=== PATIENT | female | born 1965 | race Caucasian/White ===

== ENCOUNTER 2016-11-09 10:47 | Inpatient (IN) | payer SELFPAY ==
[2016-11-09 12:38] LABS: HEMATOCRIT 42.9 % (36.0-47.0); HEMOGLOBIN 13.5 g/dL (12.0-15.5); HGB HCT DIFFERENCE -2.4; MEAN CORPUSCULAR HEMOGLOBIN 26.8 pg (27.0-33.4); MEAN CORPUSCULAR HGB CONC 31.4 g/dL (32.0-36.0); MEAN CORPUSCULAR VOLUME 85 fl (80-97); RED BLOOD COUNT 5.03 10^6/uL (3.72-5.28); RED CELL DISTRIBUTION WIDTH 12.7 % (11.5-14.0)
[2016-11-09] MEDS: NORMAL SALINE 1000 ML 1,000 ML IV PRN (12:39)
[2016-11-09 12:53] LABS: ANION GAP 14 (5-19); BLOOD UREA NITROGEN 11 mg/dL (7-20); CALCIUM 8.5 mg/dL (8.4-10.2); CARBON DIOXIDE 28 mmol/L (22-30); CHLORIDE 94 mmol/L (98-107); CREATININE RESULT 0.84 mg/dL (0.52-1.25); GLUCOSE 107 mg/dL (75-110); SODIUM 135.7 mmol/L (137-145)
[2016-11-09 12:56] LABS: BAND NEUTROPHILS % (MANUAL) 6 % (3-5); BASOPHILS % (MANUAL) 0 % (0-2); EOSINOPHILS % (MANUAL) 0 % (0-6); LYMPHOCYTES % (MANUAL) 2 % (13-45); TOTAL CELLS COUNTED 100
[2016-11-09 12:58] LABS: POTASSIUM 2.8 mmol/L (3.6-5.0)
[2016-11-09 13:00] LABS: PLATELET CLUMPS PRESENT; POIKILOCYTOSIS SLIGHT; POLYCHROMASIA SLIGHT
[2016-11-09 13:01] LABS: TOXIC GRANULATION SLIGHT
[2016-11-09 13:07] LABS: TEAR DROP CELLS SLIGHT
[2016-11-09 13:21] LABS: WHITE BLOOD COUNT 37.4 10^3/uL (4.0-10.5)
[2016-11-09 13:27] LABS: TOXIC VACUOLATION PRESENT
[2016-11-09] MEDS ORDERED: VANCOMYCIN HCL INJ 1000 MG VIAL IV ONE (13:45)
--- NOTE | 2016-11-09 13:59 | PDOC H&P ---
History of Present Illness Admission Date/PCP: 11/09/16 10:47 NUBIA MCGOWAN MD Patient complains of: Left buttocks pain History of Present Illness: ROSAMARIA LOCKE is a 51 year old female who has been having some generalized malaise along with fevers for the past week and a half. She has noticed a left buttocks small region of irritation erythema that has dramatically increased in size with dramatic increase in pain. She has been treated with Keflex as an outpatient without resolution of the current process. She has had worsening of her symptoms and she subsequently was admitted via the office today. Patient denies any drainage. Denies any active abdominal pain. She has some myalgias. No history of MRSA Past Medical History Cardiac Medical History: Denies: Coronary Artery Disease, Myocardial Infarction, Hypertension Pulmonary Medical History: Denies: Asthma, Bronchitis, Chronic Obstructive Pulmonary Disease (COPD), Pneumonia Neurological Medical History: Denies: Seizures Musculoskeltal Medical History: Denies: Arthritis Hematology: Denies: Anemia Infectious Medical History: Reports: None Past Surgical History Past Surgical History: Reports: Hysterectomy, Thyroidectomy, Tonsillectomy Denies: Pacemaker Social History Smoking Status: Never Smoker Hx Recreational Drug Use: No Family History Parental Family History Reviewed: No Children Family History Reviewed: No Sibling(s) Family History Reviewed.: No Medication/Allergy Home Medications: Levothyroxine Sodium [Synthroid 0.112 mg Tablet] 112 mcg PO DAILY 11/09/16 Allergies/Adverse Reactions: Influenza A (H1N1)Vaccine 2008 * [Influenza A (H1N1)Vaccine 2008] Allergy ( Unknown, Verified 12/05/10 14:51) Flu vaccine Allergy (Severe, Uncoded 12/01/10 09:21) Whole arm swelled up; pain Physical Exam Vital Signs: Temp Pulse Resp BP Pulse Ox 98.6 F 98 20 127/62 H 98 11/09/16 13:10 11/09/16 13:10 11/09/16 13:10 11/09/16 13:10 11/09/16 13:10 Intake & Output 11/08/16 11/09/16 11/10/16 06:59 06:59 06:59 Weight 119.748 kg General appearance: PRESENT: no acute distress, cooperative Eye exam: PRESENT: conjunctiva pink Respiratory exam: PRESENT: clear to auscultation uriel Cardiovascular exam: PRESENT: tachycardia GI/Abdominal exam: PRESENT: other - Soft, nondistended, nontender to palpation. Rectal exam: PRESENT: other - Left buttocks with a diffuse deep red erythema with induration but no focal fluctuance. Marked tenderness to palpation. Neurological exam: PRESENT: alert, awake Psychiatric exam: PRESENT: appropriate affect Results Laboratory Results: 11/09/16 12:17 11/09/16 12:17 11/09/16 11/09/16 12: 12:17 WBC 37.4 H* RBC 5.03 Hgb 13.5 Hct 42.9 MCV 85 MCH 26.8 L MCHC 31.4 L RDW 12.7 Plt Count 389 Seg Neutrophils % Not Reportable Lymphocytes % Not Reportable Monocytes % Not Reportable Eosinophils % Not Reportable Basophils % Not Reportable Absolute Neutrophils Not Reportable Absolute Lymphocytes Not Reportable Absolute Monocytes Not Reportable Absolute Eosinophils Not Reportable Absolute Basophils Not Reportable Sodium 135.7 L Potassium 2.8 L* Chloride 94 L Carbon Dioxide 28 Anion Gap 14 BUN 11 Creatinine 0.84 Est GFR ( Amer) > 60 Est GFR (Non-Af Amer) > 60 Glucose 107 Calcium 8.5 Assessment & Plan - Diagnosis (1) Cellulitis of buttock, left Is this a current diagnosis for this admission?: YesPlan: Patient has signs or symptoms of severe MRSA infection. Await CT scan to rule out any abscess pocket. However will have a low threshold for surgical exploration in light of the severe leukocytosis. Will start vancomycin.
--- NOTE | 2016-11-09 15:40 | RADIOLOGY REPORT (SQ) ---
EXAM DESCRIPTION: CT ABD/PELVIS WITH IV ORAL COMPLETED DATE/TIME: 11/09/2016 3:21 pm REASON FOR STUDY: cellulitis COMPARISON: None. TECHNIQUE: CT scan of the abdomen and pelvis performed using helical scanning technique with dynamic intravenous contrast injection. Patient drank oral contrast. Images reviewed with lung, soft tissue, and bone windows. Reconstructed coronal and sagittal MPR images reviewed. Delayed images for evaluation of the urinary system also acquired. All images stored on PACS. All CT scanners at this facility use dose modulation, iterative reconstruction, and/or weight based d osing when appropriate to reduce radiation dose to as low as reasonably achievable (ALARA). [facility]: Dose Right [facility]: CareDose [facility]: Dose Right [facility]: Teradose 4D [facility]: Hiptype CONTRAST TYPE AND DOSE: contrast/concentration: Isovue 370.00 mg/ml; Total Contrast Delivered: 88.8 ml; Total Saline Delivered: 72.0 ml RENAL FUNCTION: Creatinine 0.89 RADIATION DOSE: Up-to-date CT equipment and radiation dose reduction techniques were employed. CTDIv ol: 23.2 - 25.1 mGy. DLP: 2851 mGy-cm.. LIMITATIONS: None. FINDINGS: A left-sided perirectal abscess is present, measuring at least 8 cm craniocaudad x 7 cm AP x 4.5 cm transverse. This extends from the subcutaneous fat along the medial left buttock up into t he left ischiorectal fossa fat. Abscess tracks medially into the immediate perirectal fat on axial i mages 103-107. Findings discussed with Dr. Paris, 1515 hours 11/19/2016. This abscess is best shown on axial images 92-107, sagittal image 55, and coronal images 69-92. LOWER CHEST: Bandlike atelectasis right lung base. Small hiatal hernia. LIVER: Normal size. No masses. No dilated ducts. Diffuse low attenuation from fatty infiltration of the liver SPLEEN: Normal size. No focal lesions. PANCREAS: No masses. No significant calcifications. No adjacent inflammation or peripancreatic fluid collections. Pancreatic duct not dilated. GALLBLADDER: Surgically absent ADRENAL GLANDS: No significant masses or asymmetry. RIGHT KIDNEY AND URETER: No solid masses. No significant calcifications. No hydronephrosis or hyd roureter. LEFT KIDNEY AND URETER: No solid masses. No significant calcifications. No hydronephrosis or hydr oureter. AORTA AND VESSELS: No aneurysm. No dissection. Renal arteries, SMA, celiac without stenosis. RETROPERITONEUM: No retroperitoneal adenopathy, hemorrhage or masses. BOWEL AND PERITONEAL CAVITY: No masses or inflammatory changes. No free fluid or peritoneal masses. APPENDIX: Normal. PELVIS: Deep left perirectal abscess. Post hysterectomy. Ovaries not identified. Urinary bladder u nremarkable. 2 x 1 cm left inguinal lymph node ABDOMINAL WALL: No masses. No hernias. BONES: No significant or acute findings. OTHER: No other significant finding. IMPRESSION: 8 x 7 x 4.5 cm left perirectal abscess. TECHNICAL DOCUMENTATION: JOB ID: [id number] Quality ID # [id number]: Final reports with documentation of one or more dose reduction techniques (e.g., Au tomated exposure control, adjustment of the mA and/or kV according to patient size, use of iterative reconstruction technique) 2010 [employer]- All Rights Reserved
[2016-11-09] MEDS: POTASSIUM CHLORIDE 20 MEQ/50 ML RTU IV SCH ×2 (15:54→19:56)
[2016-11-09] MEDS: MORPHINE SULFATE 10 MG/ML INJ IV PRN (16:15)
[2016-11-09] MEDS: VANCOMYCIN HCL 1,500 MG in DEXTROSE 5%-WATER 250 ML IV SCH (16:16)
--- NOTE | 2016-11-09 16:52 | PDOC PROGRESS REPORT ---
Physical Exam Vital Signs: Temp Pulse Resp BP Pulse Ox 103.0 F H 104 H 18 144/65 H 95 11/09/16 16:41 11/09/16 16:41 11/09/16 16:41 11/09/16 16:41 11/09/16 16:41 Intake & Output 11/08/16 11/09/16 11/10/16 06:59 06:59 06:59 Weight 119.748 kg Results Laboratory Results: 11/09/16 12:17 11/09/16 12:17 11/09/16 11/09/16 12:17 12:17 WBC 37.4 H* RBC 5.03 Hgb 13.5 Hct 42.9 MCV 85 MCH 26.8 L MCHC 31.4 L RDW 12.7 Plt Count 389 Seg Neutrophils % Not Reportable Lymphocytes % Not Reportable Monocytes % Not Reportable Eosinophils % Not Reportable Basophils % Not Reportable Absolute Neutrophils Not Reportable Absolute Lymphocytes Not Reportable Absolute Monocytes Not Reportable Absolute Eosinophils Not Reportable Absolute Basophils Not Reportable Sodium 135.7 L Potassium 2.8 L* Chloride 94 L Carbon Dioxide 28 Anion Gap 14 BUN 11 Creatinine 0.84 Est GFR ( Amer) > 60 Est GFR (Non-Af Amer) > 60 Glucose 107 Calcium 8.5 Impressions: Abdomen/Pelvis CT 11/09/16 11:51 IMPRESSION: 8 x 7 x 4.5 cm left perirectal abscess. Assessment & Plan - Diagnosis (1) Perirectal abscess Is this a current diagnosis for this admission?: YesPlan: CT scan demonstrates a perirectal abscess. We will plan to perform a incision and drainage. I have explained to the patient the risk and benefits of the procedure including risk of infection, bleeding, adjacent structure injury, anal fistula formation.
[2016-11-09] MEDS: ACETAMINOPHEN 325 MG TABLET PO PRN ×2 (17:14→22:21)
[2016-11-09] MEDS ORDERED: MIDAZOLAM 2 MG/2 ML INJ ONE (17:53)
[2016-11-09] MEDS ORDERED: BUPIVACAINE HCL 0.25 % INJ/PF (2.5 MG/1 ML) 30 ML VIAL ONE (17:53)
[2016-11-09] MEDS ORDERED: PROPOFOL INJ 200 MG/20 ML VIAL IV ONE (17:53)
[2016-11-09] MEDS ORDERED: MORPHINE SULFATE 10 MG/ML INJ IV PRN ×2 (18:25→18:59)
[2016-11-09] MEDS ORDERED: FENTANYL CITRATE INJ/PF 100 MCG/2 ML AMPUL IV PRN ×3 (18:25)
[2016-11-09] MEDS ORDERED: DIPHENHYDRAMINE HCL 50 MG/ML VIAL IV PRN (18:25)
[2016-11-09] MEDS ORDERED: MEPERIDINE HCL/PF INJ 25 MG/1 ML DISP.SYRIN IV PRN (18:25)
[2016-11-09] MEDS ORDERED: OXYCODONE-ACETAMINOPHEN 5-325 MG TABLET PO PRN ×2 (18:25)
[2016-11-09] MEDS ORDERED: PROMETHAZINE HCL INJ 25 MG/1 ML VIAL IV PRN ×2 (18:25)
[2016-11-09] MEDS ORDERED: ONDANSETRON HCL INJ/PF 4 MG/2 ML SDV IV PRN (18:59)
--- NOTE | 2016-11-09 18:59 | Operative Report ---
Operative Report DATE OF SURGERY: 11/09/16 PREOPERATIVE DIAGNOSIS: Perirectal abscess POSTOPERATIVE DIAGNOSIS: Perirectal abscess OPERATION: Perirectal abscess incision and drainage SURGEON: NATASHA BARRIENTOS ANESTHESIA: Spinal TISSUE REMOVED OR ALTERED: Pus sent for Gram stain and culture COMPLICATIONS: None ESTIMATED BLOOD LOSS: 20 cc INTRAOPERATIVE FINDINGS: About the 4 x 10 cm abscess cavity extending from the left perianal region cephalad with copious amounts of pus PROCEDURE: Informed consent was obtained. Patient was brought to the operating room. After spinal anesthesia patient was placed in the prone jackknife position at the left perianal region a 18-gauge needle was placed aspirating copious amounts of foul-smelling pus. An incision was made overlying this region entering a large abscess cavity with drainage of copious amounts of pus. An ellipse of skin was taken away laterally from the initial incision to allow better drainage. Hemostasis was achieved with electrocautery. The abscess cavity measured about 4 cm x 10 cm. It extended cephalad but did not feel to cross the midline. The abscess cavity was irrigated and irrigant aspirated out. A large Malecot drain was placed into the abscess cavity and it was sutured in placed with a chromic suture. Marcaine was injected. Patient tolerated procedure well with no apparent complications and was taken to the recovery area in stable condition.
[2016-11-09] MEDS: LEVOFLOXACIN 500 MG/D5W RTU 500 MG/100 ML RTUPB IV SCH (19:57)
[2016-11-09] MEDS: METRONIDAZOLE 500 MG/NS RTU 100 ML IV SCH (21:44)
[2016-11-10] MEDS: METRONIDAZOLE 500 MG/NS RTU 100 ML IV SCH ×4 (02:16→20:53)
[2016-11-10] MEDS: ACETAMINOPHEN 325 MG TABLET PO PRN (02:36)
[2016-11-10] MEDS ORDERED: VANCOMYCIN HCL INJ 1000 MG VIAL ONE (03:50)
[2016-11-10] MEDS ORDERED: VANCOMYCIN HCL INJ 500 MG VIAL ONE (03:50)
[2016-11-10] MEDS: VANCOMYCIN HCL 1,500 MG in DEXTROSE 5%-WATER 250 ML IV SCH ×2 (04:07→14:01)
[2016-11-10] MEDS: MORPHINE SULFATE 10 MG/ML INJ IV PRN (04:22)
[2016-11-10 07:01] LABS: HEMATOCRIT 36.2 % (36.0-47.0); HEMOGLOBIN 11.9 g/dL (12.0-15.5); HGB HCT DIFFERENCE -0.5; MEAN CORPUSCULAR HEMOGLOBIN 27.5 pg (27.0-33.4); MEAN CORPUSCULAR HGB CONC 32.9 g/dL (32.0-36.0); MEAN CORPUSCULAR VOLUME 84 fl (80-97); RED BLOOD COUNT 4.32 10^6/uL (3.72-5.28); RED CELL DISTRIBUTION WIDTH 12.9 % (11.5-14.0); WHITE BLOOD COUNT 28.5 10^3/uL (4.0-10.5)
[2016-11-10 07:10] LABS: ANION GAP 13 (5-19); BLOOD UREA NITROGEN 11 mg/dL (7-20); CALCIUM 7.5 mg/dL (8.4-10.2); CARBON DIOXIDE 25 mmol/L (22-30); CHLORIDE 99 mmol/L (98-107); CREATININE RESULT 0.67 mg/dL (0.52-1.25); GLUCOSE 82 mg/dL (75-110); SODIUM 136.5 mmol/L (137-145)
[2016-11-10 07:16] LABS: POTASSIUM 2.8 mmol/L (3.6-5.0)
[2016-11-10 07:46] LABS: BAND NEUTROPHILS % (MANUAL) 6 % (3-5); BASOPHILS % (MANUAL) 0 % (0-2); EOSINOPHILS % (MANUAL) 0 % (0-6); HYPOCHROMASIA 1+; LYMPHOCYTES % (MANUAL) 1 % (13-45); POLYCHROMASIA SLIGHT; TOTAL CELLS COUNTED 100; TOXIC GRANULATION 1+; TOXIC VACUOLATION PRESENT
[2016-11-10] MEDS: NORMAL SALINE 1000 ML 1,000 ML IV PRN ×2 (08:16→23:56)
[2016-11-10] MEDS ORDERED: POTASSIUM CHLORIDE 10 MEQ TABLET.SA PO ONE ×2 (08:30→12:30)
[2016-11-10] MEDS ORDERED: LEVOTHYROXINE SODIUM 0.112 MG TABLET PO SCH (10:00)
[2016-11-10] MEDS ORDERED: HYDROCODONE/ACETAMINOPHEN 5-325 MG TABLET PO PRN (10:12)
[2016-11-10] MEDS: HYDROCODONE/ACETAMINOPHEN 5-325 MG TABLET PO PRN ×2 (10:17→22:02)
[2016-11-10 10:37] LABS: PATH REVIEW PATHOLOGIST REVIEWED
[2016-11-10] MEDS: LEVOFLOXACIN 500 MG/D5W RTU 500 MG/100 ML RTUPB IV SCH (17:52)
--- NOTE | 2016-11-10 22:29 | PROGRESS NOTE E ---
Progress Note NAME: ROSAMARIA LOCKE : 1965 AGE: 51Y DATE: 11/10/2016 ROOM: 217 SUBJECTIVE: The patient is postoperative day 1 from incision and drainage of perirectal abscess. The patient is still having discomfort around the surgical site but it is diminishing. OBJECTIVE: VITAL SIGNS: Temperature 97.8, pulse 67, blood pressure 115/75. ABDOMEN: The patient still has some induration in the left buttock region where she had the incision and drainage of the perirectal abscess. The Andrews drain is in place with minimal drainage. DIAGNOSTIC DATA: White blood cell count is 28.5, down from 37.4. Cultures of perirectal abscess is pending. ASSESSMENT: STATUS POST INCISION AND DRAINAGE OF PERIRECTAL ABSCESS WITH PATIENT IMPROVING SOME BUT STILL NEEDS A LONG WAYS TO GO BEFORE BEING DISCHARGED. She will need to continue on IV antibiotics at least until her white blood cell count is near normal and possible discharge on oral, depending on her cultures. PLAN: 1. Continue IV antibiotics. 2. Follow up culture results. 3. Start diet. DICTATING PHYSICIAN: CARRIE SAGE M.D. [id number] PHY#: [id number] ID: [id number] JOB#: [id number] ACCT: [id number] cc: >
[2016-11-11] MEDS: METRONIDAZOLE 500 MG/NS RTU 100 ML IV SCH ×4 (02:24→20:51)
[2016-11-11] MEDS: VANCOMYCIN HCL 1,500 MG in DEXTROSE 5%-WATER 250 ML IV SCH ×2 (03:30→15:25)
[2016-11-11 05:24] LABS: HEMOGLOBIN 11.9 g/dL (12.0-15.5); HGB HCT DIFFERENCE -1.3; MEAN CORPUSCULAR HEMOGLOBIN 27.7 pg (27.0-33.4); MEAN CORPUSCULAR VOLUME 86 fl (80-97); RED BLOOD COUNT 4.28 10^6/uL (3.72-5.28); RED CELL DISTRIBUTION WIDTH 13.2 % (11.5-14.0); WHITE BLOOD COUNT 13.2 10^3/uL (4.0-10.5)
[2016-11-11] MEDS: LEVOTHYROXINE SODIUM 0.112 MG TABLET PO SCH (07:37)
[2016-11-11] MEDS: HYDROCODONE/ACETAMINOPHEN 5-325 MG TABLET PO PRN (12:39)
[2016-11-11 15:07] LABS: CREATININE RESULT 0.74 mg/dL (0.52-1.25)
[2016-11-11] MEDS: LEVOFLOXACIN 500 MG/D5W RTU 500 MG/100 ML RTUPB IV SCH (17:35)
[2016-11-12] MEDS: METRONIDAZOLE 500 MG/NS RTU 100 ML IV SCH ×3 (02:03→14:13)
[2016-11-12] MEDS: VANCOMYCIN HCL 1,500 MG in DEXTROSE 5%-WATER 250 ML IV SCH ×2 (03:15→15:23)
[2016-11-12] MEDS: HYDROCODONE/ACETAMINOPHEN 5-325 MG TABLET PO PRN (03:29)
[2016-11-12] MEDS: LEVOTHYROXINE SODIUM 0.112 MG TABLET PO SCH (07:01)
[2016-11-12] MEDS: NORMAL SALINE 1000 ML 1,000 ML IV PRN (08:26)
[2016-11-12 15:13] VITALS: BP 130/78
[2016-11-12] MEDS ORDERED: AMOXICILLIN TR/POT CLAVULANATE 500-125 MG TAB PO SCH (22:00)
--- NOTE | 2016-11-12 23:39 | PROGRESS NOTE E ---
Progress Note NAME: ROSAMARIA LOCKE : 1965 AGE: 51Y DATE: 11/12/2016 ROOM: 217 SUBJECTIVE: The patient is postoperative day 2 from incision and drainage of a large perirectal abscess with drain placement. She is slowly improving with decreasing pain in the perianal region. The patient states that she has minimal drainage from the wound. Her pain is lessening in the area of the surgery. OBJECTIVE: The patient's redness and induration has improved, but is still present. VITAL SIGNS: Temperature 97.7, pulse 66, blood pressure 129/86. DIAGNOSTIC DATA: White blood cell count of 13. ASSESSMENT: STATUS POST INCISION AND DRAINAGE OF LARGE PERIRECTAL ABSCESS, POSTOPERATIVE DAY 2 WITH THE PATIENT CONTINUING TO IMPROVE AND HAVING IMPROVEMENT IN THE INFECTION. PLAN: 1. Continue local wound care. 2. Continue IV antibiotics. 3. Possible discharge in the a.m. if she continues to improve and going home on oral antibiotics. DICTATING PHYSICIAN: CARRIE SAGE M.D. [id number] PHY#: [id number] ID: [id number] JOB#: [id number] ACCT: [id number] cc: >
--- NOTE | 2016-12-18 09:07 | DISCHARGE SUMMARY E ---
Discharge Summary NAME: ROSAMARIA LOCKE : 1965 AGE: 51Y ADMITTED: 11/09/2016 DISCHARGED: 11/12/2016 REASON FOR ADMISSION: Left buttock pain. HISTORY OF PRESENT ILLNESS: Patient is a 51-year-old female who presents with a week and half history of pain in the left buttock region. She had went to the emergency room. A CT scan of the pelvis was obtained. This showed a large ischial rectal abscess. PRINCIPAL DIAGNOSIS: Ischial rectal abscess. OTHER MEDICAL PROBLEMS: None. PROCEDURE: The patient underwent incision and drainage of a large left ischial rectal abscess on 11/09/2016. HOSPITAL COURSE: The patient was admitted to the hospital and started on IV antibiotics. Her white blood cell count was 37,000. She underwent the above procedure with the drain being left in place. She was then continued on IV antibiotics postoperatively. Her abscess drained out multiple different types of bacteria, all sensitive to the IV antibiotics she was on. Her white blood cell count was watched with her white blood cell count decreasing down to 13,000 at discharge 3 days later. The erythema and induration had improved considerably over the several days she was in the hospital, having minimal erythema at discharge. The drain had been left in placed and she was taught how to care for the drain in going home. She was then discharged home on postoperative day 3 in stable condition. DISCHARGE PLAN: The patient will be discharged home. Follow up in Surgical Clinic in 1 week. Regular diet. Ambulate with no heavy lifting. Augmentin 500 one tab p.o. t.i.d. [place] 5/325 one to two p.o. q.4-6 hours p.r.n. pain. DICTATING PHYSICIAN: CARRIE SAGE M.D. [id number] PHY#: [id number] ID: [id number] JOB#: [id number] ACCT: [id number] cc:CARRIE SAGE M.D., CHRISTOPHER M.D. >
== END 2016-11-12 15:40 | disposition home or self-care (01) | DRG 346 ==
LOC: UNDOADMIN 10:47 → 2S 10:47 → EH 10:47
PROVIDERS: ATTEND Surgery
PROC: 0D9P0ZZ Drainage of Rectum, Open Approach (ICD-10-PCS; principal; 2016-11-09 18:30)
DX: K61.1 Rectal abscess (principal); E89.0 Postprocedural hypothyroidism; Z79.899 Other long term (current) drug therapy; Z88.7 Allergy status to serum and vaccine; Z90.710 Acquired absence of both cervix and uterus
CPT/HCPCS: 36415; 74177; 80048; 80202; 82565; 85025; 85027; 87040; 87070; 87075; 87077; 87186; 87205; 902; C1729; J1956; J2250; J2270; J2405; J2704; J3370; J3480; J3490; J7030; J7060

== ENCOUNTER 2018-02-18 11:32 | Emergency (ER) | payer SELFPAY ==
--- NOTE | 2018-02-18 12:08 | ER Document Report ---
ED General - General Chief Complaint: Leg Pain Stated Complaint: LEFT LEG PAIN Time Seen by Provider: 02/18/18 12:00 Mode of Arrival: Ambulatory Information source: Patient Notes: 52-year-old female presents emergency department with complaints of left calf pain. Patient states that it started 2 days ago. She states that she was walking when she felt a pop in the left calf. Patient states that she is been having pain in the left calf ever since. She is not taking any medication for her symptoms. She states that the pain is worse with plantar flexion and dorsiflexion. Patient is able to ambulate despite the pain. She denies any numbness, tingling, weakness. Patient also denies any recent travel, recent surgery, history of DVT or PE, hormone use, history of malignancy. I have greeted and performed a rapid initial assessment of this patient. A comprehensive ED assessment and evaluation of the patient, analysis of test results and completion of the medical decision making process will be conducted by additional ED providers. PHYSICAL EXAMINATION: GENERAL: Well-appearing, well-nourished and in no acute distress. HEAD: Atraumatic, normocephalic. EYES: Pupils equal round extraocular movements intact, conjunctiva are normal. ENT: Nares patent NECK: Normal range of motion LUNGS: No respiratory distress Musculoskeletal: Normal range of motion. Left calf tenderness to palpation. NEUROLOGICAL: Normal speech, normal gait. PSYCH: Normal mood, normal affect. SKIN: Warm, Dry, normal turgor, no rashes or lesions noted. TRAVEL OUTSIDE OF THE [place] IN LAST 30 DAYS: No - Related Data Allergies/Adverse Reactions: Influenza A (H1N1)Vaccine 2008 * [Influenza A (H1N1)Vaccine 2008] Allergy ( Unknown, Verified 02/18/18 11:37) Past Medical History - Social History Smoking Status: Never Smoker Chew tobacco use (# tins/day): No Frequency of alcohol use: None Drug Abuse: None Family History: None Patient has suicidal ideation: No Patient has homicidal ideation: No - Past Medical History Cardiac Medical History: Denies: Hx Coronary Artery Disease, Hx Heart Attack, Hx Hypertension Pulmonary Medical History: Reports: Hx Tuberculosis Denies: Hx Asthma, Hx Bronchitis, Hx COPD, Hx Pneumonia Neurological Medical History: Denies: Hx Cerebrovascular Accident, Hx Seizures Renal/ Medical History: Denies: Hx Peritoneal Dialysis GI Medical History: Musculoskeletal Medical History: Reports Hx Arthritis Infectious Medical History: Past Surgical History: Reports: Hx Cholecystectomy, Hx Hysterectomy, Hx Thyroid Surgery, Hx Tonsillectomy. Denies: Hx Pacemaker - Immunizations Hx Diphtheria, Pertussis, Tetanus Vaccination: No Physical Exam - Vital signs Vitals: Temp Pulse Resp BP Pulse Ox 97.9 F 82 16 163/93 H 97 02/18/18 11:40 02/18/18 11:40 02/18/18 11:40 02/18/18 11:40 02/18/18 11:40 Course - Vital Signs Vital signs: Temp Pulse Resp BP Pulse Ox 97.9 F 82 16 163/93 H 97 02/18/18 11:40 02/18/18 11:40 02/18/18 11:40 02/18/18 11:40 02/18/18 11:40 Discharge - Discharge Referrals: NUBIA MCGOWAN MD [Primary Care Provider] - Follow up as needed
--- NOTE | 2018-02-18 12:22 | ER Document Report ---
ED General - General Chief Complaint: Leg Pain Stated Complaint: LEFT LEG PAIN Time Seen by Provider: 02/18/18 12:00 Mode of Arrival: Ambulatory Notes: 52-year-old female presents emergency department with complaints of left calf pain. Patient states that it started 2 days ago. She states that she was walking when she felt a pop in the left calf. Patient states that she is been having pain in the left calf ever since. She is not taking any medication for her symptoms. She states that the pain is worse with plantar flexion and dorsiflexion. Patient has a history of smoking or hormone use. Denies fever chills. Denies any recent hospitalizations or mobilities. Denies chest pain denies shortness of breath rates the pain as severe upon trying to bear weight. TRAVEL OUTSIDE OF THE [place] IN LAST 30 DAYS: No - Related Data Allergies/Adverse Reactions: Influenza A (H1N1)Vaccine 2008 * [Influenza A (H1N1)Vaccine 2008] Allergy ( Unknown, Verified 02/18/18 11:37) Past Medical History - General Information source: Patient - Social History Smoking Status: Never Smoker Chew tobacco use (# tins/day): No Frequency of alcohol use: None Drug Abuse: None Family History: None Patient has suicidal ideation: No Patient has homicidal ideation: No - Past Medical History Cardiac Medical History: Denies: Hx Coronary Artery Disease, Hx Heart Attack, Hx Hypertension Pulmonary Medical History: Reports: Hx Tuberculosis Denies: Hx Asthma, Hx Bronchitis, Hx COPD, Hx Pneumonia Neurological Medical History: Denies: Hx Cerebrovascular Accident, Hx Seizures Renal/ Medical History: Denies: Hx Peritoneal Dialysis GI Medical History: Musculoskeletal Medical History: Reports Hx Arthritis Infectious Medical History: Past Surgical History: Reports: Hx Cholecystectomy, Hx Hysterectomy, Hx Thyroid Surgery, Hx Tonsillectomy. Denies: Hx Pacemaker - Immunizations Hx Diphtheria, Pertussis, Tetanus Vaccination: No Review of Systems - Review of Systems Constitutional: denies: Chills, Fever Cardiovascular: denies: Chest pain, Dyspnea, Edema Respiratory: denies: Cough, Short of breath Musculoskeletal: Muscle pain. denies: Back pain, Joint pain, Muscle stiffness Skin: denies: Rash -: Yes All other systems reviewed and negative Physical Exam - Vital signs Vitals: Temp Pulse Resp BP Pulse Ox 97.9 F 82 16 163/93 H 97 02/18/18 11:40 02/18/18 11:40 10/15/18 11:40 02/18/18 11:40 02/18/18 11:40 - Notes Notes: GENERAL_APPEARANCE: well_nourished, alert, cooperative VITALS: reviewed, see vital signs table. HEAD: no_swelling\tenderness on the head. EYES: conjunctiva_clear. NOSE: no_nasal_discharge. MOUTH: (-)decreased moisture. NECK: supple, no_neck_tenderness, (-)thyromegaly. BACK: no_back_tenderness. CHEST_WALL: no_chest_tenderness. EXTREMITIES: Patient complain the left calf pain there is no redness heat or swelling in the area. She is tender about mid calf positive Homans sign there are strong dorsalis pedis posterior tibial pulses distal. SKIN: warm, dry, good_color, no_rash. MENTAL_STATUS: speech_clear, oriented_X_3, normal_affect, responds_ appropriately to questions. Course - Re-evaluation Re-evalutation: 02/18/18 12:22 Patient presents with left calf pain we will get a venous Doppler to rule out DVT 02/18/18 14:34 Neg DVT or SVT. Pt has good strong dorsalis pedis pulses. My suspicion for arterial occlusion is low. Patient likely has a plantaris muscle/tendon rupture. I gave her information on that. Advised her to use ice and NSAIDs. Discharged home - Vital Signs Vital signs: Temp Pulse Resp BP Pulse Ox 97.9 F 82 16 163/93 H 97 02/18/18 11:40 02/18/18 11:40 02/18/18 11:40 02/18/18 11:40 02/18/18 11:40 - Diagnostic Test Radiology results interpreted by me: 02/18/18 14:34 Venous Doppler Study 02/18/18 12:03 IMPRESSION: 1. NO EVIDENCE OF DVT OR SVT IN THE LEFT LEG. Discharge - Discharge Clinical Impression: Rupture of plantaris tendon Qualifiers: Encounter type: initial encounter Laterality: left Qualified Code(s): S96.812A - Strain of other specified muscles and tendons at ankle and foot level, left foot, initial encounter Condition: Good Disposition: HOME, SELF-CARE Instructions: Leg Pain Nonspecific ([facility]) Additional Instructions: Please follow-up with your doctor for further care use ibuprofen for pain and inflammation and ice the leg for the next 3 days Referrals: NUBIA MCGOWAN MD [HONORARY] - Follow up as needed
--- NOTE | 2018-02-18 13:59 | RADIOLOGY REPORT (SQ) ---
EXAM DESCRIPTION: VENOUS UNILATERAL LOWER COMPLETED DATE/TIME: 02/18/2018 1:48 pm REASON FOR STUDY: pain left leg / Hx clots COMPARISON: None. TECHNIQUE: Dynamic and static akers scale and color images acquired of the left leg venous system. Se lected spectral images acquired with additional compression and augmentation maneuvers. The contralat eral common femoral vein and saphenofemoral junction were also imaged. Images stored on PACS. LIMITATIONS: None. FINDINGS: COMMON FEMORAL: Normal phasicity, compression and augmentation. No visualized echogenic ma terial on akers scale. No defects on color images. FEMORAL: Normal compression and augmentation. No visualized echogenic material on akers scale. No defe cts on color images. POPLITEAL: Normal compression, augmentation. No visualized echogenic material on akers scale. No defec ts on color images. CALF VESSELS: Normal compression, augmentation. No visualized echogenic material on akers scale. No de fects on color images. GSV and SSV: Normal compression, augmentation. No visualized echogenic material on akers scale. No def ects on color images. ANY DEEP VENOUS INSUFFICIENCY: Not evaluated. ANY EVIDENCE OF POPLITEAL CYST: No. OTHER: No other significant finding. CONTRALATERAL COMMON FEMORAL VEIN AND SAPHENOFEMORAL JUNCTION: Normal phasicity, compression and augmentation. No visualized echogenic material on akers scale. No de fects on color images. IMPRESSION: 1. NO EVIDENCE OF DVT OR SVT IN THE LEFT LEG. TECHNICAL DOCUMENTATION: JOB ID: [id number] [employer]- All Rights Reserved Reading location - IP/workstation name: [email or web address]
[2018-02-18 15:29] VITALS: BP 143/86
== END 2018-02-18 15:15 | disposition home or self-care (01) ==
LOC: ER 11:32
DX: S96.812A Strain of other specified muscles and tendons at ankle and foot level, left foot, initial encounter (principal); Y93.01 Activity, walking, marching and hiking
CPT/HCPCS: 93971; 99283